=== PATIENT | female | born 1995 | race Caucasian/White ===

== ENCOUNTER 2019-08-12 08:17 | Emergency (ER) | payer MEDICAID ==
[~2019-08-12] VITALS: Ht 170.2 cm; Wt 63.5 kg
[2019-08-12 08:31] VITALS: BP 123/87
== END 2019-08-12 09:02 | disposition left against medical advice (07) ==
LOC: EDBD 08:17 → ER 08:17
DX: S10.91XA Abrasion of unspecified part of neck, initial encounter (principal); Z53.21 Procedure and treatment not carried out due to patient leaving prior to being seen by health care provider; X78.1XXA Intentional self-harm by knife, initial encounter; Y93.89 Activity, other specified; Y92.89 Other specified places as the place of occurrence of the external cause; Y99.8 Other external cause status

== ENCOUNTER 2024-11-14 16:26 | Emergency (ER) | payer MEDICAID ==
[~2024-11-14] VITALS: Ht 167.6 cm; Wt 68.0 kg
[2024-11-14] MEDS ORDERED: VANCOMYCIN PER PHARMACY 0 MG IV SCH (17:00)
--- NOTE | 2024-11-14 17:01 | ED.PDOC ---
History of Present Illness(SKN HPI Comments HPI: Poor Historian. HPI: 29 year old female accompanied by boyfriend and with father in the car presents to the ED with chief complaint of bilateral foot wounds. Patient repor ts that she has been experiencing redness with associated swelling, pain, and discharge to the bilateral feet for the past 6 months. Patient states she visited [facility] and [facility] for treatment, but had only received antibiotics from [facility]. Patient notes that she uses Fentanyl and Methamphetamine daily, despite trying to quit numerous times. Patient denies any numbness, weakness, fever, or chills. Initial Vitals: Temp: 97.7F BP: 143/84 HR: 129 RR: 17 O2 Sat.: 100% Past Medical History: Denies Past Surgical History: Heart Surgery Social History: Denies smoking and ETOH, Uses Methamphetamine and Fentanyl Medication: Denies Allergies: NKDA REVIEW OF SYSTEMS: CONSTITUTIONAL: Denies acute: fever, diaphoresis, chills, generalized weakness. HEAD: Denies acute: headache, photophobia Eyes: Denies acute: Double vision, vision loss, eye pain, eye discharge. EARS: Denies acute: tinnitus, hearing loss, ear discharge, ear pain, THROAT: Denies acute: sore throat, swelling, difficulty swallowing , pain with swallowing, change in voice. NECK: Denies acute: neck pain, neck swelling, stiff neck. HEART: Denies acute : chest pain, palpitations, LUNGS: Denies acute: SOB, wheezing, cough, hemoptysis ABDOMEN: Denies acute: abdominal pain, Nausea, Vomiting, diarrhea, melena , hematemesis, hematochezia SKIN: Denies acute: itchiness. EXTREMITIES: Denies acute: calf pain, numbness, tingling, weakness, Denies acute: Low back pain. Neuro: Denies acute: focal neurological deficit, motor or sensory focal neurological deficit, tremors, seizure like activity, confusion, dizziness, change in mental status, loss of bowel or bladder function, cauda equina like symptoms. : Denies acute: dysuria, hematuria, flank pain, increase in urinary frequency. PSYCH: Denies acute: hallucination, suicidal ideation, homicidal ideation. FEMALE: Denies acute: abnormal vaginal bleeding, foul odor, unusual discharge. PHYSICAL EXAM: General: no acute distress, awake and alert. Head: normocephalic, atraumatic. Neck: supple, trachea is midline, no swelling. Throat: Normal phonation. Eyes:, no erythema, no purulent discharge, no proptosis, no icterus. Heart: regular tachycardic, no significant murmur appreciated. Lungs: no apparent respiratory distress, Able to speak in full sentences. No wheezing, no rhonchi, no crackles. No stridors Clear to auscultation bilaterally. Abdomen: non tender to palpation, non distended, soft, no guarding, no rebound, + bowel sounds. Neuro: Awake, Alert, oriented to name, self, situation, follows commands GCS=15. Speech is normal. Skin: no petechia, no purpura, no cyanosis, non-pale, not jaundice. Lower extremities: --noted - Pitting edema right greater than left. no deformity, no focal swelling, no calf TTP. Noted right foot above the lateral malleoli wound/ulceration. Noted wound at the bilateral dorsum of the feet. Extremely foul odor or bilateral feet. Patient has been where her socks for a very long time and has extremely poor hygiene and foul odor. Makes eye contact. moves all four extremities. Face: no apparent facial droop. Pedal pulses are palpable. Chief Complaint: Wound Check Time Seen by MD: 16:59 Primary Care Provider: niecy History of Present Illness: Nurses Notes, Allergies Allergies: Coded Allergies: NO KNOWN ALLERGIES (Unverified , 08/12/19) Information Source: Patient, Friend Mode of Arrival: Wheelchair Was a procedure done? Was a procedure done?: No EKG EKG : Pulse Rate (adult): 97 [place]: Normal Cardiac Rhythm: NSR Block: None Hypertrophy: None ST: Normal X-Ray, Labs, Meds, VS Vital Signs Date Time Temp Pulse Resp B/P (MAP) Pulse Ox O2 Delivery O2 Flow Rate FiO2 11/14/24 21:13 97 11/14/24 18:26 98.3 111 16 154/106 (122) 100 98.3 11/14/24 18:10 97 11/14/24 17:58 18 98 Room Air* 0 21 11/14/24 16:53 97.7 129 17 143/84 (103) 100 Lab Test 11/14/24 17:15 11/14/24 17:12 Range/Units Urine Color Yellow Yellow Urine Clarity Turbid H Clear Urine pH 7.0 5.0-9.0 Urine Specific [place] 1.029 1.001-1.035 Urine Protein Trace H Negative Urine Ketones Negative Negative Urine Blood Negative Negative /uL Urine Nitrite Negative Negative Urine Bilirubin Negative Negative Urine Urobilinogen 3 H Negative mg/dL Urine Leukocyte Esterase Negative Negative /uL Urine RBC 2 0 - 4 /hpf Urine Microscopic WBC 2 0-5 /HPF Urine Squamous Epithelial Cells Few <5 /hpf Urine Amorphous Crystals Few None Seen /hpf Urine Bacteria Few H None Seen /hpf Urine Mucus Few None Seen Urine Glucose Normal Normal mg/dL Urine Test Negative Negative Urine Opiates Screen Neg NEGATIVE Urine Fentanyl Screen Pos NEGATIVE Urine Barbiturates Screen Neg NEGATIVE Urine Phencyclidine Screen Neg NEGATIVE Urine Amphetamines Screen Pos NEGATIVE Urine Benzodiazepines Screen Neg NEGATIVE Urine Cocaine Screen Neg NEGATIVE Urine Cannabinoids Screen Neg NEGATIVE White Blood Count 5.9 4.4-10.8 10^3/uL Red Blood Count 4.36 4.0-5.20 10^6/uL Hemoglobin 11.4 L 12.2-16.2 g/dL Hematocrit 35.4 L 36.0-46.0 % Mean Corpuscular Volume 81.3 80.0-100.0 fL Mean Corpuscular Hemoglobin 26.1 L 28.0-32.0 pg Mean Corpuscular Hemoglobin Concent 32.1 32.0-36.0 g/dL Red Cell Distribution Width 15.8 H 11.8-14.3 % Platelet Count 417 140-450 10^3/uL Mean Platelet Volume 7.0 6.9-10.8 fL Neutrophils (%) (Auto) 47.8 37.0-80.0 % Lymphocytes (%) (Auto) 40.7 10.0-50.0 % Monocytes (%) (Auto) 7.2 0.0-12.0 % Eosinophils (%) (Auto) 2.8 0.0-7.0 % Basophils (%) (Auto) 1.5 0.0-2.0 % Neutrophils # (Auto) 2.8 1.6-8.6 10 ^3/uL Lymphocytes # (Auto) 2.4 0.4-5.4 10 ^3/uL Monocytes # (Auto) 0.4 0-1.3 10 ^3/uL Eosinophils # (Auto) 0.2 0-0.8 10 ^3/uL Basophils # (Auto) 0.1 0-0.2 10 ^3/uL Nucleated Red Blood Cells 0.0 % Erythrocyte Sedimentation Rate 77 H 0-20 mm/hr Sodium Level 143 136-145 mmol/L Potassium Level 4.2 3.5-5.1 mmol/L Chloride Level 106 98-107 mmol/L Carbon Dioxide Level 29 20-31 mmol/L Anion Gap 8 5-15 Blood Urea Nitrogen 10 9-23 mg/dL Creatinine 0.79 0.550-1.02 mg/dL Glomerular Filtration Rate Calc 104 >90 mL/min BUN/Creatinine Ratio 12.7 10.0-20.0 Serum Glucose 95 74-106 mg/dL Lactic Acid Level 1.2 0.4-2.0 mmol/L Calcium Level 10.2 8.7-10.4 mg/dL Magnesium Level 2.1 1.6-2.6 mg/dL Total Bilirubin 0.2 0.2-1.0 mg/dL Aspartate Amino Transferase (AST) 19 13-40 U/L Alanine Aminotransferase (ALT) 24 7-40 U/L Alkaline Phosphatase 92 46-116 U/L Creatine Kinase 189 H 34-145 U/L C-Reactive Protein High Sensitivity 5.67 H <1.0 mg/dL B-Type Natriuretic Peptide 12.81 0-100 pg/mL Total Protein 8.5 H 5.7-8.2 g/dL Albumin 5.0 H 3.2-4.8 g/dL Current Medications Medications (Trade) Dose Ordered Sig/Sameer Route Start Time Stop Time Status Last Admin Piperacillin Sod/ Tazobactam Sod 100 ml @ 100 mls/hr ONCE ONCE IV 11/14/24 17:00 11/14/24 17:59 DC 11/14/24 17:[address] [address] Ph: [phone] DIAGNOSTIC IMAGING Diagnostic Imaging Report : [id number] Signed PATIENT: CONSTANTINE GUTIERREZ ACCT: [id number] UNIT: [id number] : 1995 LOC: ER ROOM / BED: / AGE / SEX: 29 / F ADM STATUS: REG ER SERVICE [id number] ORDERING PHYSICIAN: NANCY TROTTER DO PROCEDURE(s): BLDVT - BiLat Lower DVT REASON: b/l leg wounds ORDER NUMBER(s): [id number], ACCESSION NUMBER(s): [id number] Bilateral lower extremity venous duplex Clinical History: b/l leg wounds Comparison: None Technique: Duplex Doppler evaluation of the deep venous systems of both lower extremities from the common femoral veins to the popliteal veins including color Doppler and spectral/pulsed waveform analysis was performed. Findings: RIGHT SIDE: The common femoral vein demonstrates appropriate compressibility and waveform variability. There is compressibility/patency of the great saphenous vein at the proximal thigh. The femoral vein demonstrates appropriate compressibility and waveform variability. The deep femoral vein demonstrates appropriate compressibility and waveform variability. The popliteal vein demonstrates appropriate compressibility and waveform variability. There is color flow at the tibioperoneal trunk and in the posterior tibial vein. LEFT SIDE: The common femoral vein demonstrates appropriate compressibility and waveform variability. There is compressibility/patency of the great saphenous vein at the proximal thigh. The femoral vein demonstrates appropriate compressibility and waveform variability. The deep femoral vein demonstrates appropriate compressibility and waveform variability. The popliteal vein demonstrates appropriate compressibility and waveform variability. There is color flow at the tibioperoneal trunk and in the posterior tibial vein. Impression: 1. No right or left femoropopliteal venous thrombosis. ATED BY: JEANNINE GALAN MD DICTATED DATE/TIME: 11/14/241813 SIGNED BY: JEANNINE GALAN MD SIGNED DATE/TIME: 11/14/241813 CC: Time of 1ST Reevaluation: 20:03 (The case was discussed with the [facility] admitting team (HPI, physical exam, labs and diagnostic tests that were available at the time of disposition, ED course, treatment plan) on the phone. They agreed to transfer the patient to the facility for further evaluation and treatment. Dr. Boateng. Authorization number is [id number]) Reevaluation 1ST: Unchanged Patient Education/Counseling: Diagnosis, Treatment Family Education/Counseling: Diagnosis, Treatment Additional Information Patient presented with the above HPI. Bilateral foot wound workup was initiated. patient was found with the above mentioned diagnosis. the following medications were ordered: vancomycin, piperacillin the following tests were ordered: CMP, CBC, BMP, BNP, UA, lactic acid, urine test, blood culture, creatine kinase, drug screen magnesium, C-reactive protein, erythrocyte sediment Patient ED course and VS have been stabilized. Patient has been reassessed in the ED and remained in a stable condition. Escalation of care considered: Consideration of escalation to observation or admission Patient was TRANSFERRED to another facility for further evaluation and treatment however we later discovered that the patient eloped. She never got her CT scan of the extremities. All the reports of any imaging studies that were ordered by myself were reviewed by myself. Departure 1 Departure Time of Disposition: 17:17 Impression: Primary Impression: Open wound of both legs with complication Additional Impressions: Polysubstance abuse Homelessness Eloped from emergency department Disposition: ADMITTED INPATIENT Admit to: Tele Condition: Guarded Discharged With: Self Critical Care Note Critical Care Time?: No I personally scribed for NANCY TROTTER DO ([email or web address]) on 11/14/24 at 17:01. Electronically submitted by Doug Gambino ([email or web address]). I personally scribed for NANCY TROTTER DO ([email or web address]) on 11/14/24 at 17:16. Electronically submitted by Doug Gambino ([email or web address]). I personally scribed for NANCY TROTTER DO ([email or web address]) on 11/14/24 at 21:13. Electronically submitted by Poli Suárez ([email or web address]). NANCY TROTTER DO Nov 14, 2024 17:01
[2024-11-14 17:28] LABS: Basophils # (auto) 0.1 10 ^3/uL (0-0.2); Hematocrit 35.4 % (36.0-46.0); Hemoglobin 11.4 g/dL (12.2-16.2); Monocytes # (auto) 0.4 10 ^3/uL (0-1.3)
[2024-11-14 17:30] LABS: Basophils % (auto) 1.5 % (0.0-2.0); Eosinophils # (auto) 0.2 10 ^3/uL (0-0.8); Eosinophils % (auto) 2.8 % (0.0-7.0); Lymphocytes # (auto) 2.4 10 ^3/uL (0.4-5.4); Lymphocytes % (auto) 40.7 % (10.0-50.0); Mean Corpuscular Hemoglobin 26.1 pg (28.0-32.0); Mean Corpuscular Hgb Conc. 32.1 g/dL (32.0-36.0); Mean Corpuscular Volume 81.3 fL (80.0-100.0); Monocytes % (auto) 7.2 % (0.0-12.0); Neutrophils # (auto) 2.8 10 ^3/uL (1.6-8.6); Neutrophils % (auto) 47.8 % (37.0-80.0); Platelet Count (auto) 417 10^3/uL (140-450); Red Blood Cells 4.36 10^6/uL (4.0-5.20); Red Cell Distribution Width 15.8 % (11.8-14.3); White Blood Cell 5.9 10^3/uL (4.4-10.8)
[2024-11-14] MEDS ORDERED: VANCOMYCIN 1GM/250ML KIT 250 ML IV ONE (17:45)
[2024-11-14 17:51] LABS: Alanine Aminotransferase 24 U/L (7-40); Alkaline Phosphatase 92 U/L (46-116); Anion Gap 8 (5-15); Aspartate Aminotransferase 19 U/L (13-40); BUN/Creatinine Ratio 12.7 (10.0-20.0); Blood Urea Nitrogen 10 mg/dL (9-23); Calcium 10.2 mg/dL (8.7-10.4); Carbon Dioxide 29 mmol/L (20-31); Chloride 106 mmol/L (98-107); Glucose 95 mg/dL (74-106); Magnesium 2.1 mg/dL (1.6-2.6); Potassium 4.2 mmol/L (3.5-5.1); Sodium 143 mmol/L (136-145)
[2024-11-14] MEDS: PIPERACILLIN-TAZOB 3.375GM 100 ML IV ONE (17:55)
[2024-11-14 17:58] VITALS: RESP 18; O2SAT 98
--- NOTE | 2024-11-14 18:16 | DVH ---
Bilateral lower extremity venous duplex Clinical History: b/l leg wounds Comparison: None Technique: Duplex Doppler evaluation of the deep venous systems of both lower extremities from the common femora l veins to the popliteal veins including color Doppler and spectral/pulsed waveform analysis was perf ormed. Findings: RIGHT SIDE: The common femoral vein demonstrates appropriate compressibility and waveform variability. There is compressibility/patency of the great saphenous vein at the proximal thigh. The femoral vein demonstrates appropriate compressibility and waveform variability. The deep femoral vein demonstrates appropriate compressibility and waveform variability. The popliteal vein demonstrates appropriate compressibility and waveform variability. There is color flow at the tibioperoneal trunk and in the posterior tibial vein. LEFT SIDE: The common femoral vein demonstrates appropriate compressibility and waveform variability. There is compressibility/patency of the great saphenous vein at the proximal thigh. The femoral vein demonstrates appropriate compressibility and waveform variability. The deep femoral vein demonstrates appropriate compressibility and waveform variability. The popliteal vein demonstrates appropriate compressibility and waveform variability. There is color flow at the tibioperoneal trunk and in the posterior tibial vein. Impression: 1. No right or left femoropopliteal venous thrombosis.
[2024-11-14 18:24] LABS: Cannabinoid Screen, Urine Neg (NEGATIVE)
[2024-11-14 18:26] VITALS: BP 154/106; RESP 16; TEMP 98.3; O2SAT 100
[2024-11-14 18:26] LABS: Urine Amorphous Crystal FEW /hpf (None Seen); Urine Bacteria FEW /hpf (None Seen); Urine Blood Negative /uL (Negative); Urine Clarity Turbid (Clear); Urine Color Yellow (Yellow); Urine Mucus FEW (None Seen); Urine Protein, UAD TRACE (Negative); Urine Specific Gravity 1.029 (1.001-1.035); Urine Squamous Epithelial Cell FEW /hpf (<5); Urine Urobilinogen 3 mg/dL (Negative); Urine WBC 2 /HPF (0-5)
[2024-11-14 18:31] LABS: Bilirubin, Total 0.2 mg/dL (0.2-1.0); CRP High Sensitivity 5.67 mg/dL (<1.0); Creatine Kinase IFCC 189 U/L (34-145); Total Protein 8.5 g/dL (5.7-8.2)
[2024-11-14 18:32] LABS: Amphetamine Screen, Urine Pos (NEGATIVE); Barbiturate Scree,Urine Neg (NEGATIVE); Benzodiazephine Screen, Urine Neg (NEGATIVE); Cocaine Screen, Urine Neg (NEGATIVE); Opiate Scree,Urine Neg (NEGATIVE); Phencyclidine Screen, Urine Neg (NEGATIVE)
[2024-11-14 18:40] LABS: Erythrocyte Sedimentation Rate 77 mm/hr (0-20)
[2024-11-14] MEDS ORDERED: IOHEXOL 300 MG/ML 100ML BOTTLE IJ ONE (21:06)
[2024-11-14 21:13] VITALS: PULSE 97
--- NOTE | 2024-11-14 21:45 | ECG ---
[facility] Test Date: 2024-11-14 Test Time: 18:10:13 Pat Name: CONSTANTINE GUTIERREZ Department: ER Room: Gender: F Imaging System Administrator: IC : 1995 Requested By: NANCY TROTTER Order Number: [id number] Reading MD: Leonardo Middleton Measurements Intervals [place] Rate: 97 P: 55 MD: 159 QRS: 86 QRSD: 80 T: 53 QT: 332 QTc: 422 Interpretive Statements Sinus rhythm Baseline wander in lead(s) I,II,aVR Electronically Signed On 11-16-2024 16:40:45 PST by Leonardo Middleton Please click the below link to view image of tracing.
== END 2024-11-14 21:30 | disposition left against medical advice (07) ==
LOC: ER 16:31
DX: S81.802A Unspecified open wound, left lower leg, initial encounter (principal); S81.801A Unspecified open wound, right lower leg, initial encounter; F19.10 Other psychoactive substance abuse, uncomplicated; Z59.00 Homelessness unspecified; X58.XXXA Exposure to other specified factors, initial encounter; Y93.89 Activity, other specified; Y92.89 Other specified places as the place of occurrence of the external cause; Y99.8 Other external cause status
CPT/HCPCS: 36415; 80053; 80307; 81001; 81025; 82550; 83605; 83735; 83880; 85025; 85652; 86141; 87040; 93005; 93970; 96365; 99285; J2543; Q9967